=== PATIENT | female | born 1980 | race American Indian/Alaskan Native ===

== ENCOUNTER 2018-07-18 19:28 | Emergency (ER) | payer SELFPAY ==
--- NOTE | 2018-07-18 20:17 | Emergency Department Report ---
Blank Doc - Documentation Documentation: This is a 38-year-old female that presents with left leg cellulitis and some a bscess formation. This initial assessment/diagnostic orders/clinical plan/treatment(s) is/are subject to change based on patient's health status, clinical progression and re- assessment by fellow clinical providers in the ED. Further treatment and workup at subsequent clinical providers discretion. Patient/guardians urged not to elope from the ED as their condition may be serious if not clinically assessed and managed. Initial orders include: 1- Patient sent to [facility] for further evaluation and treatment
[2018-07-18] MEDS ORDERED: XYLOCAINE 1% MPF 5 mL INFILTRATI ONE (21:58)
[2018-07-18] MEDS ORDERED: TORADOL IV ONE (21:58)
[2018-07-18] MEDS ORDERED: CLEOCIN 900 MG/50 mL 900 MG/50 ML BAG IV ONE (21:58)
[2018-07-18 22:46] LABS: Basophils % (Auto) 0.3 % (0.0-1.8); Eosinophils # (Auto) 0.1 K/mm3 (0.0-0.4); Eosinophils % (Auto) 0.6 % (0.0-4.3); Hematocrit 40.6 % (30.3-42.9); Hemoglobin 13.4 gm/dl (10.1-14.3); Lymphocytes # (Auto) 2.6 K/mm3 (1.2-5.4); Lymphocytes % (Auto) 19.3 % (13.4-35.0); Mean Corpuscular HGB Conc 33 % (30-34); Mean Corpuscular Volume 89 fl (79-97); Monocytes # (Auto) 1.1 K/mm3 (0.0-0.8); Monocytes % (Auto) 8.4 % (0.0-7.3); Platelet Count 247 K/mm3 (140-440); Red Blood Count 4.58 M/mm3 (3.65-5.03); Red Cell Distribution Width 13.9 % (13.2-15.2)
[2018-07-18 23:43] LABS: Alanine Aminotransferase 21 units/L (7-56); Albumin 3.6 g/dL (3.9-5); BUN/Creatinine Ratio 10; Blood Urea Nitrogen 6 mg/dL (7-17); Calcium 9.3 mg/dL (8.4-10.2); Hemolysis Index 37
--- NOTE | 2018-07-18 23:55 | Emergency Department Report ---
ED General Adult HPI - General Chief complaint: Skin/Abscess/Foreign Body Stated complaint: BOIL ON BOTTOM LEFT LEG Time Seen by Provider: 07/18/18 20:16 Source: patient Mode of arrival: Ambulatory Limitations: No Limitations - History of Present Illness Initial comments: This is a 38-year-old female that presents with left leg cellulitis and some abscess formation. pt is dm II , this is a recurring issues states she is out of insulin, this abscess for past week LLE with mild erythema and pain there is no fever no chills no n/v Onset/Timin -: week(s) Location: lower extremity (LLE ) Radiation: non-radiation Severity scale (0 -10): 10 Quality: sharp Consistency: constant Improves with: none Worsens with: movement, other (weight bearing ) Associated Symptoms: malaise Treatments Prior to Arrival: none - Related Data Previous Rx's Medication Instructions Recorded Last Taken Type Clindamycin [Clindamycin CAP] 300 mg PO Q6H 10 Days #40 capsule 07/19/18 Unknown Rx Insulin NPH Human Isophane 100 unit SQ QHS #20 units 07/19/18 Unknown Rx [HumuLIN N Kwikpen] Pen Needle, Diabetic [Insulin Pen 1 each MC QDDIAB #30 dis.needle 07/19/18 Unknown Rx Needle] metFORMIN [Glucophage] 500 mg PO BID #60 tablet 07/19/18 Unknown Rx traMADol [Ultram] 50 mg PO Q6HR PRN #12 tablet 07/19/18 Unknown Rx Allergies Allergy/AdvReac Type Severity Reaction Status Date / Time No Known Allergies Allergy Verified 07/18/18 19:31 ED Review of Systems ROS: Stated complaint: BOIL ON BOTTOM LEFT LEG Other details as noted in HPI Constitutional: denies: chills, fever Eyes: denies: eye pain, eye discharge, vision change ENT: denies: ear pain, throat pain Respiratory: denies: cough, shortness of breath, wheezing Cardiovascular: denies: chest pain, palpitations Endocrine: no symptoms reported Gastrointestinal: denies: abdominal pain, nausea, diarrhea Genitourinary: denies: urgency, dysuria, discharge Musculoskeletal: arthralgia, myalgia. denies: back pain, joint swelling Skin: lesions (lle abscess 1x2 cm mild surround cellulitis ). denies: rash Neurological: denies: headache, weakness, paresthesias Psychiatric: denies: anxiety, depression Hematological/Lymphatic: denies: easy bleeding, easy bruising ED Past Medical Hx - Past Medical History Hx Diabetes: Yes - Surgical History Additional Surgical History: c sect x 2 - Social History Smoking Status: Current Every Day Smoker Substance Use Type: None - Medications Home Medications: Home Medications Medication Instructions Recorded Confirmed Last Taken Type Clindamycin [Clindamycin CAP] 300 mg PO Q6H 10 Days #40 capsule 07/19/18 Unkno wn Rx Insulin NPH Human Isophane 100 unit SQ QHS #20 units 07/19/18 Unknown Rx [HumuLIN N Kwikpen] Pen Needle, Diabetic [Insulin Pen 1 each MC QDDIAB #30 dis.needle 07/19/18 Unknown Rx Needle] metFORMIN [Glucophage] 500 mg PO BID #60 tablet 07/19/18 Unknown Rx traMADol [Ultram] 50 mg PO Q6HR PRN #12 tablet 07/19/18 Unknown Rx ED Physical Exam - General Limitations: No Limitations General appearance: alert, in no apparent distress - Head Head exam: Present: atraumatic, normocephalic - Eye Eye exam: Present: normal appearance, PERRL, EOMI Pupils: Present: normal accommodation - ENT ENT exam: Present: mucous membranes moist - Neck Neck exam: Present: normal inspection - Respiratory Respiratory exam: Present: normal lung sounds bilaterally. Absent: respiratory distress, wheezes, stridor, chest wall tenderness - Cardiovascular Cardiovascular Exam: Present: regular rate, normal rhythm, normal heart sounds. Absent: systolic murmur, diastolic murmur, rubs, gallop - GI/Abdominal GI/Abdominal exam: Present: soft, normal bowel sounds. Absent: distended, tenderness, bruit, hernia - Rectal Rectal exam: Present: deferred - Extremities Exam Extremities exam: Present: normal inspection, full ROM, tenderness (LLE erythema abscess ), normal capillary refill. Absent: pedal edema, joint swelling, calf tenderness - Expanded Lower Extremity Exam Left Lower Leg exam: Present: tenderness, swelling (LLE Abscess ), erythema. Absent: abrasion, laceration, ecchymosis, deformity, crepidus, dislocation, palpable cord, Gisela's sign Ankle exam: Present: normal inspection, full ROM Foot/Toe exam: Present: normal inspection, full ROM Neuro vascular tendon exam: Absent: no vascular compromise, pulse deficit, motor deficit, sensory deficit, tendon deficit Gait: Positive: observed and normal - Back Exam Back exam: Present: normal inspection, full ROM. Absent: tenderness, CVA tenderness (R), CVA tenderness (L), muscle spasm, paraspinal tenderness, vertebral tenderness, rash noted - Neurological Exam Neurological exam: Present: alert, oriented X3, CN II-XII intact, normal gait, reflexes normal. Absent: motor sensory deficit - Psychiatric Psychiatric exam: Present: normal affect, normal mood - Skin Skin exam: Present: warm, dry, intact, normal color. Absent: rash ED Course Vital Signs 07/18/18 07/18/18 07/18/18 19:50 20:17 22:28 Temperature 98.8 F 98.8 F Pulse Rate 107 H 108 H Respiratory 18 18 19 Rate Blood Pressure 151/95 151/95 O2 Sat by Pulse 100 100 Oximetry - I & D Left Lower Leg Type of Procedure: Simple Site: LLE Blade Size: 11 I & D Procedure: betadine prep, sterile dressing applied Progress: Wound cleaned with Betadine solution anesthesia 1% lidocaine 2 mL plain incision with 11 blade scalpel 1 straight wound probed with blunt forceps moderate purulent drainage or bleeding is controlled . Wound irrigated with 40 mL of sterile saline sterile dressing applied on his controlled patient tolerated procedure with minimal distress patient was given wound care instructions verbalized understanding of same. ED Medical Decision Making - Lab Data Result diagrams: 07/18/18 22:02 07/18/18 22:02 Labs 07/18/18 07/18/18 07/18/18 21:52 22:02 22:02 WBC 13.6 H RBC 4.58 Hgb 13.4 Hct 40.6 MCV 89 MCH 29 MCHC 33 RDW 13.9 Plt Count 247 Lymph % (Auto) 19.3 [place] % (Auto) 8.4 H Eos % (Auto) 0.6 Baso % (Auto) 0.3 Lymph # 2.6 [place] # 1.1 H Eos # 0.1 Baso # 0.0 Seg Neutrophils % 71.4 H Seg Neutrophils # 9.7 H Sodium 136 L Potassium 4.4 Chloride 97.6 L Carbon Dioxide 21 L Anion Gap 22 BUN 6 L Creatinine 0.6 L Estimated GFR > 60 BUN/Creatinine Ratio 10 Glucose 247 H POC Glucose 234 H Calcium 9.3 Total Bilirubin 0.30 AST 12 ALT 21 Alkaline Phosphatase 96 Total Protein 6.3 Albumin 3.6 L Albumin/Globulin Ratio 1.3 - Medical Decision Making this is a LLE abscess , mild cellulitis, abscess I&D see procedure note , all bleeding is controlled, accu check is 224 mg/dl, pt tolerated procedure with minimal distress, pt is currently a/o x 3 ambulatory with improved symptoms, plan refill insulin, metformin, clindamycin x 10 days, follow up with pcp in 2-3 days, pt given referal to [facility] will follow up tomorrow. pt verbalized agreement and understanding of discharge plan. Critical care attestation.: If time is entered above; I have spent that time in minutes in the direct care of this critically ill patient, excluding procedure time. ED Disposition Clinical Impression: Abscess of lower leg Disposition: - TO HOME OR SELFCARE Is pt being admited?: No Does the pt Need Aspirin: No Condition: Stable Instructions: Abscess (ED), Abscess Incision and Drainage (ED) Prescriptions: Insulin NPH Human Isophane [HumuLIN N Kwikpen] 100 unit SQ QHS #20 units Clindamycin [Clindamycin CAP] 300 mg PO Q6H 10 Days #40 capsule metFORMIN [Glucophage] 500 mg PO BID #60 tablet Pen Needle, Diabetic [Insulin Pen Needle] 1 each MC QDDIAB #30 dis.needle traMADol [Ultram] 50 mg PO Q6HR PRN #12 tablet PRN Reason: Pain Referrals: [facility] [Outside] - 3-5 Days Forms: Work/School Release Form(ED) Time of Disposition: 00:07
[2018-07-19 01:40] VITALS: BP 104/66
== END 2018-07-19 00:34 | disposition home or self-care (01) ==
LOC: ED 19:28
DX: L02.416 Cutaneous abscess of left lower limb (principal); E11.9 Type 2 diabetes mellitus without complications; F17.200 Nicotine dependence, unspecified, uncomplicated; Z79.4 Long term (current) use of insulin
CPT/HCPCS: 10060; 36415; 80053; 82962; 85025; 96365; 96375; 99283; J1885

== ENCOUNTER 2021-01-14 13:24 | Emergency (ER) | payer SELFPAY ==
--- NOTE | 2021-01-14 13:50 | Event Note ---
ED Screening Note ED Screening Note: Patient is a 40-year-old female presents emergency room complaints of right sided arm and leg numbness that began around 1 PM today She states that her leg became weak and she fell to the ground. she denies any vision changes, headache, chest pain, speech disturbance pmhx DM +smoker This initial assessment/diagnostic orders/clinical plan/treatment(s) is/are subject to change based on patients health status, clinical progression and re- assessment by fellow clinical providers in the ED. Further treatment and workup at subsequent clinical providers discretion. Patient/guardian urged not to elope from the ED as their condition may be serious if not clinically assessed and managed. Initial orders include: code stroke initiated discussed case with Dr Vergara and Dr Oh
[2021-01-14] MEDS ORDERED: SODIUM CHLORIDE 0.9% 1000 ML 1,000 ML IV ONE (14:08)
[2021-01-14] MEDS ORDERED: INSULIN REGULAR, HUMAN 100 UNITS/1 ML IV ONE (14:08)
--- NOTE | 2021-01-14 14:11 | Emergency Department Report ---
Blank Doc - Documentation Documentation: [facility] Consult Note # Demographics Consult Type: Acute Stroke Level 1 (0-4.5 hrs) Patient Location: Emergency Room First Name: Hal Last Name: Fidel Age: 40 Gender: Female Facility: [facility] Time of Initial Page ( Time): 01/14/2021, 13:29 Time of Return Call ( Time): 01/14/2021, 13:29 # HPI History: right sided numbness while playing with her grandson. Symptoms started 1300 # Scores Time of exam and NIHSS ( Time): 01/14/2021, 13:33 Level of Consciousness 1a: [0] = Alert; keenly responsive LOC Questions 1b: [0] = Answers both questions correctly LOC Commands 1c: [0] = Performs both tasks correctly Best Gaze 2: [0] = Normal Visual 3: [0] = No visual loss Facial Palsy 4: [0] = Normal symmetrical movements Motor Arm Left 5a: [0] = No drift Motor Arm Right 5b: [0] = No drift Motor Leg Left 6a: [0] = No drift Motor Leg Right 6b: [0] = No drift Limb Ataxia 7: [0] = Absent Sensory 8: [1] = [id number] sensory loss Best Language 9: [0] = No aphasia Dysarthria 10: [0] = Normal Extinction and Inattention 11: [0] = No abnormality NIHSS Total: 1 # PMH-FH-SH Past Medical History: Diabetes hypertension # Data Head CT: no bleed # Assessment Impression: Ischemic Stroke (Acute) Stroke Mimic # Plan Thrombolytic/Intervention: NOT IV Thrombolysis or IA Intervention candidate Thrombolytic Exclusion (< 3 hour window): non-disabling deficit Intraarterial Exclusion: non-disabling Other: I have discussed my recommendations with the referring provider Additional Recommendations: MRI brain if symptoms persist # Logistics Telemedicine: Interactive 2 way audio and visual telecommunication technology was utilized during this visit
--- NOTE | 2021-01-14 14:12 | Emergency Department Report ---
ED Neuro Deficit HPI - General Stated Complaint: STROKE LIKE SYMPTOMS Time Seen by Provider: 01/14/21 14:00 Source: patient - History of Present Illness Initial Comments: Patient is 40 years old female with history of diabetes noncompliant with medication. Patient presented to the ER of sudden onset of right upper and lower extremity numbness. Patient stated that she felt her right leg heavy. Patient stated this is happened approximately 1 PM this afternoon. Patient stated that she fell on the right side after she felt the heaviness and numbness. Patient denied any headache, visual disturbance, speech problem, imbalance or ataxia. Upon arrival to the ER code stroke immediately initiated and patient moved to CT for stat CT brain without contrast. Stroke telemetry neurologist immediately consulted and patient examined by Dr. Carbone. She stated that patient is not a TPA candidate since her symptoms improved significantly. - Related Data Home Medications: Previous Rx's Medication Instructions Recorded Last Taken Type Clindamycin [Clindamycin CAP] 300 mg PO Q6H 10 Days #40 capsule 07/19/18 Unknown Rx Insulin NPH Human Isophane 100 unit SQ QHS #20 units 07/19/18 Unknown Rx [HumuLIN N Kwikpen] Pen Needle, Diabetic [Insulin Pen 1 each MC QDDIAB #30 dis.needle 07/19/18 Unknown Rx Needle] metFORMIN [Glucophage] 500 mg PO BID #60 tablet 07/19/18 Unknown Rx traMADoL [Ultram] 50 mg PO Q6HR PRN #12 tablet 07/19/18 Unknown Rx Allergies/Adverse Reactions: Allergies Allergy/AdvReac Type Severity Reaction Status Date / Time No Known Allergies Allergy Verified 07/18/18 19:31 ED Review of Systems ROS: Stated complaint: STROKE LIKE SYMPTOMS Other details as noted in HPI Comment: All other systems reviewed and negative Constitutional: denies: chills, fever Respiratory: denies: cough, shortness of breath, SOB with exertion Cardiovascular: denies: chest pain, palpitations Gastrointestinal: denies: abdominal pain, nausea, vomiting, diarrhea, constipation, hematemesis, melena Musculoskeletal: denies: back pain Neurological: weakness, numbness. denies: headache, paresthesias, confusion ED Past Medical Hx - Past Medical History Hx Diabetes: Yes - Surgical History Additional Surgical History: c sect x 2 - Social History Smoking Status: Current Every Day Smoker Substance Use Type: None - Medications Home Medications: Home Medications Medication Instructions Recorded Confirmed Last Taken Type Clindamycin [Clindamycin CAP] 300 mg PO Q6H 10 Days #40 capsule 07/19/18 Unknown Rx Insulin NPH Human Isophane 100 unit SQ QHS #20 units 07/19/18 Unknown Rx [HumuLIN N Kwikpen] Pen Needle, Diabetic [Insulin Pen 1 each MC QDDIAB #30 dis.needle 07/19/18 Unknown Rx Needle] metFORMIN [Glucophage] 500 mg PO BID #60 tablet 07/19/18 Unknown Rx traMADoL [Ultram] 50 mg PO Q6HR PRN #12 tablet 07/19/18 Unknown Rx ED Neuro Physical Exam - General General appearance: alert, in no apparent distress, anxious Suspected Stroke: Yes - Head Head exam: Present: atraumatic, normocephalic, normal inspection - Eye Eye exam: Present: normal appearance, PERRL - ENT ENT exam: Present: normal exam, normal orophraynx, mucous membranes moist - Neck Neck exam: Present: normal inspection. Absent: tenderness, meningismus - Respiratory Respiratory exam: Present: normal lung sounds bilaterally - Cardiovascular Cardiovascular Exam: Present: regular rate, normal rhythm, normal heart sounds - GI/Abdominal GI/Abdominal exam: Present: soft, normal bowel sounds. Absent: distended, tenderness, guarding, rebound, rigid, organomegaly, mass, bruit, pulsatile mass, hernia - Extremities Exam Extremities exam: Present: normal inspection, full ROM, normal capillary refill. Absent: tenderness, pedal edema, joint swelling, calf tenderness - Back Exam Back exam: Present: normal inspection, full ROM. Absent: CVA tenderness (R), CVA tenderness (L) - Neurological Exam Neurological exam: Present: alert, oriented X3, CN II-XII intact - NIHSS Assessment Interval: Baseline 1a. Level of Consciousness: alert/keenly responsive 1b. LOC Questions: answers both correctly 1c. LOC Commands: performs tasks correctly 2. Best Gaze: normal 3. Visual: no visual loss 4. Facial Palsy: normal symmetrical movement 5b. Motor Arm Right: no drift 5a. Motor Arm Left: no drift 6a. Motor Leg Left: no drift 6b. Motor Leg Right: no drift 7. Limb Ataxia: absent 8. Sensory: normal 9. Best Language: no aphasia 10. Dysarthria: normal 11. Extinction/Inattention: no abnormality Total Score: 0 Stroke Severity: No Stroke Symptoms - Psychiatric Psychiatric exam: Present: normal mood - Skin Skin exam: Present: warm, intact, normal color ED Course - Reevaluation(s) Reevaluation #1: 01/14/21 16:25 Patient symptoms completely resolved. Patient found to have a blood glucose of 525. Patient received normal saline and insulin. - Lab Data Result diagrams: 01/14/21 13:58 01/14/21 13:58 Lab Results 01/14/21 01/14/21 01/14/21 Range/Units 13:31 13:58 13:58 WBC 9.4 (4.5-11.0) K/mm3 RBC 4.76 (3.65-5.03) M/mm3 Hgb 13.4 (10.1-14.3) gm/dl Hct 41.1 (30.3-42.9) % MCV 86 (79-97) fl MCH 28 (28-32) pg MCHC 33 (30-34) % RDW 14.6 (13.2-15.2) % Plt Count 290 (140-440) K/mm3 Lymph % (Auto) 24.4 (13.4-35.0) % Riley % (Auto) 8.0 H (0.0-7.3) % Eos % (Auto) 1.7 (0.0-4.3) % Baso % (Auto) 0.8 (0.0-1.8) % Lymph # (Auto) 2.3 (1.2-5.4) K/mm3 Riley # (Auto) 0.8 (0.0-0.8) K/mm3 Eos # (Auto) 0.2 (0.0-0.4) K/mm3 Baso # (Auto) 0.1 (0.0-0.1) K/mm3 Seg Neutrophils % 65.1 (40.0-70.0) % Seg Neutrophils # 6.1 (1.8-7.7) K/mm3 PT 14.7 (12.2-14.9) Sec. INR 1.04 (0.87-1.13) APTT 26.4 (24.2-36.6) Sec. Thrombin Time 16.4 (15.1-19.6) Sec. VBG pH (7.320-7.420) Sodium (137-145) mmol/L Potassium (3.6-5.0) mmol/L Chloride (98-107) mmol/L Carbon Dioxide (22-30) mmol/L Anion Gap mmol/L BUN (7-17) mg/dL Creatinine (0.6-1.2) mg/dL Estimated GFR ml/min BUN/Creatinine Ratio % Glucose (65-100) mg/dL POC Glucose 489 H (70-105) mg/dL Calcium (8.4-10.2) mg/dL Total Bilirubin (0.1-1.2) mg/dL AST (5-40) units/L ALT (7-56) units/L Alkaline Phosphatase (35-129) units/L Total Creatine Kinase (30-135) units/L CK-MB (CK-2) (0.0-4.0) ng/mL CK-MB (CK-2) Rel Index (0-4) Troponin T (0.00-0.029) ng/mL Total Protein (6.3-8.2) g/dL Albumin (3.9-5) g/dL Albumin/Globulin Ratio % HCG, Qual (Negative) 01/14/21 01/14/21 01/14/21 Range/Units 13:58 13:58 13:58 WBC (4.5-11.0) K/mm3 RBC (3.65-5.03) M/mm3 Hgb (10.1-14.3) gm/dl Hct (30.3-42.9) % MCV (79-97) fl MCH (28-32) pg MCHC (30-34) % RDW (13.2-15.2) % Plt Count (140-440) K/mm3 Lymph % (Auto) (13.4-35.0) % Riley % (Auto) (0.0-7.3) % Eos % (Auto) (0.0-4.3) % Baso % (Auto) (0.0-1.8) % Lymph # (Auto) (1.2-5.4) K/mm3 Riley # (Auto) (0.0-0.8) K/mm3 Eos # (Auto) (0.0-0.4) K/mm3 Baso # (Auto) (0.0-0.1) K/mm3 Seg Neutrophils % (40.0-70.0) % Seg Neutrophils # (1.8-7.7) K/mm3 PT (12.2-14.9) Sec. INR (0.87-1.13) APTT (24.2-36.6) Sec. Thrombin Time (15.1-19.6) Sec. VBG pH 7.382 (7.320-7.420) Sodium 132 L (137-145) mmol/L Potassium 3.9 (3.6-5.0) mmol/L Chloride 97.5 L (98-107) mmol/L Carbon Dioxide 23 (22-30) mmol/L Anion Gap 15 mmol/L BUN 7 (7-17) mg/dL Creatinine 0.6 (0.6-1.2) mg/dL Estimated GFR > 60 ml/min BUN/Creatinine Ratio 12 % Glucose 521 H* (65-100) mg/dL POC Glucose (70-105) mg/dL Calcium 8.6 (8.4-10.2) mg/dL Total Bilirubin 0.20 (0.1-1.2) mg/dL AST 27 (5-40) units/L ALT 56 (7-56) units/L Alkaline Phosphatase 183 H (35-129) units/L Total Creatine Kinase 60 (30-135) units/L CK-MB (CK-2) 1.0 (0.0-4.0) ng/mL CK-MB (CK-2) Rel Index 1.6 (0-4) Troponin T < 0.010 (0.00-0.029) ng/mL Total Protein 7.4 (6.3-8.2) g/dL Albumin 3.5 L (3.9-5) g/dL Albumin/Globulin Ratio 0.9 % HCG, Qual Negative (Negative) 01/14/21 Range/Units 16:06 WBC (4.5-11.0) K/mm3 RBC (3.65-5.03) M/mm3 Hgb (10.1-14.3) gm/dl Hct (30.3-42.9) % MCV (79-97) fl MCH (28-32) pg MCHC (30-34) % RDW (13.2-15.2) % Plt Count (140-440) K/mm3 Lymph % (Auto) (13.4-35.0) % Riley % (Auto) (0.0-7.3) % Eos % (Auto) (0.0-4.3) % Baso % (Auto) (0.0-1.8) % Lymph # (Auto) (1.2-5.4) K/mm3 Riley # (Auto) (0.0-0.8) K/mm3 Eos # (Auto) (0.0-0.4) K/mm3 Baso # (Auto) (0.0-0.1) K/mm3 Seg Neutrophils % (40.0-70.0) % Seg Neutrophils # (1.8-7.7) K/mm3 PT (12.2-14.9) Sec. INR (0.87-1.13) APTT (24.2-36.6) Sec. Thrombin Time (15.1-19.6) Sec. VBG pH (7.320-7.420) Sodium (137-145) mmol/L Potassium (3.6-5.0) mmol/L Chloride (98-107) mmol/L Carbon Dioxide (22-30) mmol/L Anion Gap mmol/L BUN (7-17) mg/dL Creatinine (0.6-1.2) mg/dL Estimated GFR ml/min BUN/Creatinine Ratio % Glucose (65-100) mg/dL POC Glucose 227 H (70-105) mg/dL Calcium (8.4-10.2) mg/dL Total Bilirubin (0.1-1.2) mg/dL AST (5-40) units/L ALT (7-56) units/L Alkaline Phosphatase (35-129) units/L Total Creatine Kinase (30-135) units/L CK-MB (CK-2) (0.0-4.0) ng/mL CK-MB (CK-2) Rel Index (0-4) Troponin T (0.00-0.029) ng/mL Total Protein (6.3-8.2) g/dL Albumin (3.9-5) g/dL Albumin/Globulin Ratio % HCG, Qual (Negative) - EKG Data -: EKG Interpreted by Ak EKG shows normal: sinus rhythm Rate: normal Interpretation: no acute changes - Radiology Data Radiology results: report reviewed - Medical Decision Making Patient is 40 years old female with history of diabetes noncompliant with medication. Patient presented to the ER of sudden onset of right upper and lower extremity numbness. Patient stated that she felt her right leg heavy. Patient stated this is happened approximately 1 PM this afternoon. Patient stated that she fell on the right side after she felt the heaviness and numbne ss. Patient denied any headache, visual disturbance, speech problem, imbalance or ataxia. Upon arrival to the ER code stroke immediately initiated and patient moved to CT for stat CT brain without contrast. Stroke telemetry neurologist immediately consulted and patient examined by Dr. Carbone. She stated that patient is not a TPA candidate since her symptoms improved significantly. Patient found to be hyperglycemic with blood glucose of 527 however there is no anion gap. Patient received normal saline and insulin. Patient stated that she is feeling much better. Patient currently denying any weakness numbness or tingling sensation. Patient stated that she was [facility] from [facility] and she does not have her diabetes or hypertension medication. Patient given prescription for Metformin and Norvasc and advised to follow-up with primary doctor in the next 2 to 3 days and to return to the ER if he develop any new symptoms. Critical care attestation.: If time is entered above; I have spent that time in minutes in the direct care of this critically ill patient, excluding procedure time. ED Disposition Clinical Impression: Numbness, Acute hyperglycemia Disposition: 01 HOME / SELF CARE / HOMELESS Is pt being admited?: No Condition: Stable Instructions: Hyperglycemia, [id number], Paresthesia Referrals: PRIMARY [facility] [Primary Care Provider] - 3-[address] [facility] [Provider Group] - 3-5 Days
[2021-01-14 14:57] LABS: Basophils # (Auto) 0.1 K/mm3 (0.0-0.1); Basophils % (Auto) 0.8 % (0.0-1.8); Eosinophils # (Auto) 0.2 K/mm3 (0.0-0.4); Eosinophils % (Auto) 1.7 % (0.0-4.3); Hematocrit 41.1 % (30.3-42.9); Hemoglobin 13.4 gm/dl (10.1-14.3); Lymphocytes # (Auto) 2.3 K/mm3 (1.2-5.4); Lymphocytes % (Auto) 24.4 % (13.4-35.0); Mean Corpuscular HGB Conc 33 % (30-34); Mean Corpuscular Volume 86 fl (79-97); Monocytes # (Auto) 0.8 K/mm3 (0.0-0.8); Platelet Count 290 K/mm3 (140-440); Red Blood Count 4.76 M/mm3 (3.65-5.03); Red Cell Distribution Width 14.6 % (13.2-15.2)
[2021-01-14 15:08] LABS: INR 1.04 (0.87-1.13)
[2021-01-14 15:09] LABS: Partial Thromboplastin Time 26.4 Sec. (24.2-36.6); Thrombin Time 16.4 Sec. (15.1-19.6)
[2021-01-14 15:18] LABS: Alanine Aminotransferase 56 units/L (7-56); Albumin 3.5 g/dL (3.9-5); Blood Urea Nitrogen 7 mg/dL (7-17); Calcium 8.6 mg/dL (8.4-10.2); Hemolysis Index 1
[2021-01-14 16:09] LABS: BUN/Creatinine Ratio 12
== END 2021-01-14 17:30 | disposition home or self-care (01) ==
LOC: ED 13:24
DX: R20.0 Anesthesia of skin (principal); E11.65 Type 2 diabetes mellitus with hyperglycemia; F17.200 Nicotine dependence, unspecified, uncomplicated
CPT/HCPCS: 36415; 70450; 80053; 82550; 82553; 82805; 82962; 84484; 84703; 85025; 85610; 85670; 85730; 96360; 99283; J7030; J1815